=== PATIENT | female | born 1990 | race Caucasian/White ===

== ENCOUNTER 2016-07-27 21:43 | Outpatient (CLI) | payer OTHER ==
[2016-07-27 23:04] LABS: ASPARTATE AMINO TRANSFERASE 19 U/L (15-37); BLOOD UREA NITROGEN 10 mg/dL (7-18)
== END 2016-07-27 23:43 | disposition home or self-care (01) ==
LOC: LDOP 21:43
PROVIDERS: ATTEND Obstetrics & Gynecology
DX: O26.893 Other specified pregnancy related conditions, third trimester (principal); O24.419 Gestational diabetes mellitus in pregnancy, unspecified control; O21.9 Vomiting of pregnancy, unspecified; O62.9 Abnormality of forces of labor, unspecified; R50.9 Fever, unspecified; Z3A.33 33 weeks gestation of pregnancy
CPT/HCPCS: 36415; 59025; 80053; 81001; 82731; 82962; 85025; 87086; 99211; G0463

== ENCOUNTER 2016-09-12 05:35 | Inpatient (IN) | payer OTHER ==
[~2016-09-12] VITALS: Ht 175.3 cm; Wt 104.5 kg
[2016-09-12] MEDS ORDERED: NEWBORN KIT ONE (05:41)
[2016-09-12] MEDS ORDERED: LACTATED RINGERS 1,000 ML IV SCH ×2 (05:45→06:00)
[2016-09-12] MEDS ORDERED: OXYTOCIN 30U/ 0.9% NaCL 500ML 500 ML IV SCH (05:45)
[2016-09-12 06:00] VITALS: BP 124/79
[2016-09-12] MEDS ORDERED: LACTATED RINGERS 1,000 ML IVBOLUS ONE (06:00)
[2016-09-12] MEDS ORDERED: ONDANSETRON 2MG/ML, 2ML IVPush ONE (06:00)
[2016-09-12] MEDS ORDERED: SODIUM CITRATE/CITRIC ACID 30 ML UDC PO ONE (06:00)
[2016-09-12] MEDS ORDERED: CALCIUM CARBONATE 500 MG TAB.CHEW PO PRN (06:00)
[2016-09-12] MEDS ORDERED: METOCLOPRAMIDE 5 MG/ML, 2ML IV ONE (06:00)
[2016-09-12] MEDS ORDERED: SODIUM CITRATE/CITRIC ACID 30 ML UDC ONE (06:19)
[2016-09-12] MEDS ORDERED: METOCLOPRAMIDE 5 MG/ML, 2ML ONE (06:19)
[2016-09-12 06:22] LABS: HEMOGLOBIN 10.8 g/dL (11.7-16.4); WHITE BLOOD COUNT 6.5 x10^3/uL (3.4-10)
[2016-09-12] MEDS ORDERED: OXYTOCIN 30U/ 0.9% NaCL 500ML 500 ML ONE (07:20)
[2016-09-12] MEDS ORDERED: HYDROmorphone 2 MG/ML, 1ML ONE (07:28)
[2016-09-12] MEDS ORDERED: FENTANYL PF 100 MCG/2ML ONE (07:28)
[2016-09-12] MEDS: LACTATED RINGERS 1,000 ML IV SCH ×4 (09:03→19:03)
[2016-09-12] MEDS: OXYTOCIN 30U/ 0.9% NaCL 500ML 500 ML IV SCH ×2 (09:03→19:03)
[2016-09-12] MEDS ORDERED: OXYcodone/APAP 5/325MG TABLET PO PRN (09:30)
[2016-09-12] MEDS ORDERED: ONDANSETRON 2MG/ML, 2ML IV PRN (09:30)
[2016-09-12] MEDS ORDERED: MISOPROSTOL 200 MCG TABLET PR PRN (09:30)
[2016-09-12] MEDS: PRENATAL VIT/IRON/FA 1 EACH TABLET PO SCH (09:30)
[2016-09-12] MEDS ORDERED: morphine SULFATE 10 MG/ML, 1ML IVPush PRN ×2 (09:30)
[2016-09-12] MEDS ORDERED: MEPERIDINE/PF 50 MG/ML IVPush PRN (09:30)
[2016-09-12] MEDS ORDERED: OXYcodone/APAP 5/325MG TABLET ONE (09:47)
[2016-09-12] MEDS: OXYcodone/APAP 5/325MG TABLET PO PRN ×4 (09:49→22:26)
[2016-09-12 11:00] VITALS: BP 126/79
[2016-09-12] MEDS: KETOROLAC 30 MG/1 ML IV SCH ×3 (11:32→23:24)
[2016-09-12 16:12] LABS: HEMATOCRIT 32.2 % (34.6-47.8); HEMOGLOBIN 10.6 g/dL (11.7-16.4); WHITE BLOOD COUNT 8.3 x10^3/uL (3.4-10)
[2016-09-12 16:30] VITALS: BP 124/82
[2016-09-12 19:45] VITALS: BP 116/77
[2016-09-13] VITALS: BP 118/80
[2016-09-13] MEDS: LACTATED RINGERS 1,000 ML IV SCH ×5 (01:03→17:03)
[2016-09-13 02:23] VITALS: BP 134/78
[2016-09-13 03:50] VITALS: BP 112/74
[2016-09-13] MEDS: OXYTOCIN 30U/ 0.9% NaCL 500ML 500 ML IV SCH ×2 (05:03→15:03)
[2016-09-13] MEDS: KETOROLAC 30 MG/1 ML IV SCH ×4 (05:13→23:45)
[2016-09-13] MEDS: PRENATAL VIT/IRON/FA 1 EACH TABLET PO SCH (07:23)
[2016-09-13] MEDS: DOCUSATE 100 MG CAPSULE PO PRN ×2 (07:23→20:42)
[2016-09-13] MEDS: OXYcodone/APAP 5/325MG TABLET PO PRN (07:23)
[2016-09-13] MEDS: SIMETHICONE 80 MG CHEW TAB PO PRN ×3 (07:26→20:42)
[2016-09-13 07:30] VITALS: BP 129/86
[2016-09-13] MEDS: OXYcodone/APAP 10/325MG TABLET PO PRN ×3 (11:13→20:42)
[2016-09-13] MEDS ORDERED: ONDANSETRON ODT 4 MG PO PRN (18:30)
[2016-09-13 21:07] VITALS: BP 119/76
[2016-09-14] MEDS: OXYcodone/APAP 10/325MG TABLET PO PRN ×6 (00:38→21:59)
[2016-09-14] MEDS: LACTATED RINGERS 1,000 ML IV SCH ×6 (01:03→21:03)
[2016-09-14] MEDS: OXYTOCIN 30U/ 0.9% NaCL 500ML 500 ML IV SCH ×3 (01:03→21:03)
[2016-09-14] MEDS: KETOROLAC 30 MG/1 ML IV SCH (05:40)
[2016-09-14 08:30] VITALS: BP 119/79
[2016-09-14] MEDS: SIMETHICONE 80 MG CHEW TAB PO PRN ×3 (08:46→18:04)
[2016-09-14] MEDS: DOCUSATE 100 MG CAPSULE PO PRN ×2 (08:46→20:00)
[2016-09-14] MEDS: PRENATAL VIT/IRON/FA 1 EACH TABLET PO SCH (08:47)
[2016-09-14] MEDS: IBUPROFEN 600 MG TABLET PO PRN ×2 (12:49→19:59)
[2016-09-14 21:00] VITALS: BP 127/85
[2016-09-15] MEDS: LACTATED RINGERS 1,000 ML IV SCH ×3 (01:03→09:03)
[2016-09-15] MEDS: IBUPROFEN 600 MG TABLET PO PRN ×2 (01:50→12:16)
[2016-09-15] MEDS: OXYcodone/APAP 10/325MG TABLET PO PRN ×3 (01:50→12:16)
[2016-09-15] MEDS ORDERED: IBUP-1222 PO (05:41)
[2016-09-15] MEDS ORDERED: OXYC-302 PO (05:42)
[2016-09-15] MEDS ORDERED: DOCU-30 PO (05:43)
[2016-09-15] MEDS: OXYTOCIN 30U/ 0.9% NaCL 500ML 500 ML IV SCH (07:03)
[2016-09-15] MEDS: PRENATAL VIT/IRON/FA 1 EACH TABLET PO SCH (07:46)
[2016-09-15] MEDS: DOCUSATE 100 MG CAPSULE PO PRN (07:46)
[2016-09-15 08:00] VITALS: BP 126/85
== END 2016-09-15 13:00 | disposition home or self-care (01) | DRG 766 ==
LOC: LDIP 05:35 → 2NW 11:10
PROVIDERS: ADMIT Obstetrics & Gynecology; ATTEND Obstetrics & Gynecology
PROC: 10D00Z1 Extraction of Products of Conception, Low, Open Approach (ICD-10-PCS; principal; 2016-09-12)
DX: O24.424 Gestational diabetes mellitus in childbirth, insulin controlled (principal); O36.63X0 Maternal care for excessive fetal growth, third trimester, not applicable or unspecified; Z3A.39 39 weeks gestation of pregnancy; Z37.0 Single live birth; Z85.72 Personal history of non-Hodgkin lymphomas
CPT/HCPCS: 36415; 82803; 82962; 85025; 86850; 86900; J1170; J1885; J2405; J3010; J2590; J2765; J7120

== ENCOUNTER → 2017-05-25 | Outpatient (CLI) | payer OTHER ==
[~2017-05-25] MED LIST: DOCU-131 PO; IBUP-1222 PO; OXYC-302 PO
== END ==
LOC: ROC 09:43
PROVIDERS: ATTEND Radiology Radiation Oncology
DX: Z08 Encounter for follow-up examination after completed treatment for malignant neoplasm (principal); C85.81 Other specified types of non-Hodgkin lymphoma, lymph nodes of head, face, and neck
CPT/HCPCS: 99213; G0463

== ENCOUNTER 2018-05-14 05:20 | Inpatient (IN) | payer OTHER ==
[~2018-05-14] VITALS: Ht 175.3 cm; Wt 103.2 kg
[2018-05-14] MEDS ORDERED: SODIUM CITRATE/CITRIC ACID 15 ML UDC PO ONE (06:00)
[2018-05-14] MEDS ORDERED: LACTATED RINGERS 1,000 ML IVBOLUS ONE (06:00)
[2018-05-14] MEDS ORDERED: METOCLOPRAMIDE 5 MG/ML, 2ML IV ONE (06:00)
[2018-05-14] MEDS ORDERED: SODIUM CITRATE/CITRIC ACID 15 ML UDC ONE (06:11)
[2018-05-14] MEDS ORDERED: METOCLOPRAMIDE 5 MG/ML, 2ML ONE (06:11)
[2018-05-14] MEDS ORDERED: NEWBORN KIT ONE (06:11)
[2018-05-14] MEDS ORDERED: OXYTOCIN 30U/ 0.9% NaCL 500ML 500 ML ONE (06:11)
[2018-05-14 06:32] LABS: BASOPHILS # (AUTO) 0.01 x10^3/uL (0-0.1); BASOPHILS % (AUTO) 0 % (0-1); EOSINOPHILS # (AUTO) 0.18 x10^3/uL (0-0.4); EOSINOPHILS % (AUTO) 3 % (1-7); LYMPHOCYTES # (AUTO) 0.75 x10^3/uL (1-3.4); LYMPHOCYTES % (AUTO) 12 % (22-44); MD NO; MEAN CORPUSCULAR HEMOGLOBIN 24.4 pg (27.0-34.8); MEAN CORPUSCULAR HGB CONC 32.4 g/dL (32.4-35.8); MEAN CORPUSCULAR VOLUME 75.1 fL (80-100); MEAN PLATELET VOLUME 8.8 fL (7.4-10.4); MONOCYTES # (AUTO) 0.47 x10^3/uL (0.2-0.8); MONOCYTES % (AUTO) 7 % (2-9); NEUTROPHILS # (AUTO) 4.93 x10^3/uL (1.8-6.8); NEUTROPHILS % (AUTO) 78 % (42-75); PLATELET COUNT 230 x10^3/uL (130-400); RED CELL DISTRIBUTION WIDTH 16.5 % (9.6-15.2)
[2018-05-14 06:58] VITALS: BP 130/85
[2018-05-14] MEDS ORDERED: FENTANYL PF 100 MCG/2ML ONE (07:21)
[2018-05-14] MEDS ORDERED: EPHEDRINE 50 MG/ML, 1ML ONE (07:21)
[2018-05-14] MEDS ORDERED: KETOROLAC 30 MG/1 ML ONE (07:21)
[2018-05-14] MEDS ORDERED: CEFAZOLIN 1,000 MG ONE (07:21)
[2018-05-14] MEDS ORDERED: PHENYLEPHRINE 10 MG/ML ONE (07:21)
[2018-05-14] MEDS ORDERED: DEXAMETHASONE 4 MG/ML, 1ML ONE (07:21)
[2018-05-14] MEDS ORDERED: ONDANSETRON 2MG/ML, 2ML ONE (07:21)
[2018-05-14] MEDS ORDERED: OXYTOCIN 10 UNITS/ML, 1ML ONE (07:21)
[2018-05-14] MEDS ORDERED: OXYcodone 5 MG/5 ML ORAL.SOL UDC PO PRN (07:30)
[2018-05-14] MEDS ORDERED: ONDANSETRON 2MG/ML, 2ML IVPush PRN (07:30)
[2018-05-14] MEDS ORDERED: LABETALOL 5MG/ML, 20ML IV PRN (07:30)
[2018-05-14] MEDS ORDERED: hydrALAzine 20 MG/ML, 1ML IV PRN (07:30)
[2018-05-14] MEDS ORDERED: FENTANYL PF 100 MCG/2ML IV PRN (07:30)
[2018-05-14] MEDS ORDERED: MEPERIDINE/PF 25MG/0.5ML IVPush PRN (07:30)
[2018-05-14] MEDS ORDERED: PROMETHAZINE 25 MG/ML, 1ML IV PRN (07:30)
[2018-05-14] MEDS ORDERED: MIDAZOLAM 1 MG/ML, 2ML IV PRN (07:30)
[2018-05-14] MEDS ORDERED: EPHEDRINE 50 MG/ML, 1ML IVPush PRN (07:30)
[2018-05-14] MEDS ORDERED: HYDROmorphone 2 MG/ML, 1ML IVPush PRN (07:30)
[2018-05-14] MEDS ORDERED: ALBUTEROL SULFATE 2.5 MG/3 ML NPPB PRN (07:30)
[2018-05-14] MEDS ORDERED: HYDROcodone/APAP 7.5-325MG/15ML UDC PO PRN (07:30)
[2018-05-14] MEDS ORDERED: HYDROmorphone 2 MG/ML, 1ML ONE (08:08)
[2018-05-14] MEDS: LACTATED RINGERS 1,000 ML IV SCH ×4 (08:47→18:47)
[2018-05-14] MEDS ORDERED: MORPHINE SULFATE 4 MG/ML, 1ML IVPush PRN (09:00)
[2018-05-14] MEDS ORDERED: OXYcodone/APAP 5/325MG TABLET PO PRN (09:00)
[2018-05-14] MEDS ORDERED: METHYLERGONOVINE 0.2 MG/ML IM PRN (09:00)
[2018-05-14] MEDS: PRENATAL VIT/IRON/FA 1 EACH TABLET PO SCH (09:00)
[2018-05-14] MEDS ORDERED: ONDANSETRON 2MG/ML, 2ML IV PRN (09:00)
[2018-05-14] MEDS ORDERED: morphine SULFATE 10 MG/ML, 1ML IM PRN (09:00)
[2018-05-14] MEDS: KETOROLAC 30 MG/1 ML IV SCH ×3 (09:00→20:55)
[2018-05-14] MEDS ORDERED: MISOPROSTOL 200 MCG TABLET PR PRN (09:00)
[2018-05-14] MEDS: OXYTOCIN 30U/ 0.9% NaCL 500ML 500 ML IV SCH ×2 (10:25→18:47)
[2018-05-14] MEDS: OXYcodone IR 5MG TABLET PO PRN ×3 (11:16→20:55)
[2018-05-14 11:30] VITALS: BP 113/68
[2018-05-14 16:00] VITALS: BP 112/67
[2018-05-14 16:06] LABS: BASOPHILS # (AUTO) 0.02 x10^3/uL (0-0.1); BASOPHILS % (AUTO) 0 % (0-1); EOSINOPHILS # (AUTO) 0.01 x10^3/uL (0-0.4); EOSINOPHILS % (AUTO) 0 % (1-7); LYMPHOCYTES # (AUTO) 0.75 x10^3/uL (1-3.4); LYMPHOCYTES % (AUTO) 7 % (22-44); MD NO; MEAN CORPUSCULAR HEMOGLOBIN 23.9 pg (27.0-34.8); MEAN CORPUSCULAR HGB CONC 31.6 g/dL (32.4-35.8); MEAN CORPUSCULAR VOLUME 75.4 fL (80-100); MEAN PLATELET VOLUME 8.4 fL (7.4-10.4); MONOCYTES % (AUTO) 3 % (2-9); NEUTROPHILS # (AUTO) 9.49 x10^3/uL (1.8-6.8); NEUTROPHILS % (AUTO) 90 % (42-75); PLATELET COUNT 239 x10^3/uL (130-400); RED BLOOD COUNT 4.14 x10^6/uL (3.82-5.3); RED CELL DISTRIBUTION WIDTH 16.4 % (9.6-15.2)
[2018-05-14 20:00] VITALS: BP 114/76
[2018-05-14] MEDS: SIMETHICONE 80 MG CHEW TAB PO PRN (20:55)
[2018-05-15 00:18] VITALS: BP 116/68
[2018-05-15] MEDS: LACTATED RINGERS 1,000 ML IV SCH ×5 (00:47→16:47)
[2018-05-15] MEDS: KETOROLAC 30 MG/1 ML IV SCH ×2 (03:03→08:56)
[2018-05-15] MEDS: OXYcodone IR 5MG TABLET PO PRN ×4 (03:03→20:20)
[2018-05-15] MEDS: OXYTOCIN 30U/ 0.9% NaCL 500ML 500 ML IV SCH ×2 (04:47→14:47)
[2018-05-15 04:55] VITALS: BP 100/64
[2018-05-15 06:35] LABS: BASOPHILS # (AUTO) 0.04 x10^3/uL (0-0.1); BASOPHILS % (AUTO) 1 % (0-1); EOSINOPHILS # (AUTO) 0.18 x10^3/uL (0-0.4); EOSINOPHILS % (AUTO) 2 % (1-7); LYMPHOCYTES # (AUTO) 1.18 x10^3/uL (1-3.4); LYMPHOCYTES % (AUTO) 16 % (22-44); MD NO; MEAN CORPUSCULAR HEMOGLOBIN 24.9 pg (27.0-34.8); MEAN CORPUSCULAR HGB CONC 33.5 g/dL (32.4-35.8); MEAN CORPUSCULAR VOLUME 74.4 fL (80-100); MEAN PLATELET VOLUME 8.1 fL (7.4-10.4); MONOCYTES # (AUTO) 0.51 x10^3/uL (0.2-0.8); MONOCYTES % (AUTO) 7 % (2-9); NEUTROPHILS # (AUTO) 5.33 x10^3/uL (1.8-6.8); NEUTROPHILS % (AUTO) 74 % (42-75); PLATELET COUNT 212 x10^3/uL (130-400); RED BLOOD COUNT 3.65 x10^6/uL (3.82-5.3); RED CELL DISTRIBUTION WIDTH 16.2 % (9.6-15.2)
[2018-05-15] MEDS: DOCUSATE 100 MG CAPSULE PO PRN ×2 (07:52→20:20)
[2018-05-15] MEDS: PRENATAL VIT/IRON/FA 1 EACH TABLET PO SCH (07:52)
[2018-05-15 08:00] VITALS: BP 122/80
[2018-05-15] MEDS: SIMETHICONE 80 MG CHEW TAB PO PRN ×3 (09:01→20:21)
[2018-05-15] MEDS: IBUPROFEN 600 MG TABLET PO PRN ×2 (14:46→20:21)
[2018-05-15 20:20] VITALS: BP 115/76
[2018-05-16] MEDS: OXYTOCIN 30U/ 0.9% NaCL 500ML 500 ML IV SCH ×2 (00:47→10:47)
[2018-05-16] MEDS: LACTATED RINGERS 1,000 ML IV SCH ×4 (00:47→10:47)
[2018-05-16] MEDS: OXYcodone IR 5MG TABLET PO PRN ×3 (01:14→12:05)
[2018-05-16] MEDS: IBUPROFEN 600 MG TABLET PO PRN ×2 (02:44→08:35)
[2018-05-16] MEDS: SIMETHICONE 80 MG CHEW TAB PO PRN ×2 (02:44→08:33)
[2018-05-16 07:40] VITALS: BP 114/75
[2018-05-16] MEDS: PRENATAL VIT/IRON/FA 1 EACH TABLET PO SCH (08:33)
[2018-05-16] MEDS: DOCUSATE 100 MG CAPSULE PO PRN (08:33)
== END 2018-05-16 16:05 | disposition home or self-care (01) | DRG 788 ==
LOC: LDIP 05:20 → UNDOADMIN 05:37 → EDIP 05:37 → 2NW 10:52
PROVIDERS: ADMIT Obstetrics & Gynecology; ATTEND Obstetrics & Gynecology
PROC: 10D00Z1 Extraction of Products of Conception, Low, Open Approach (ICD-10-PCS; principal; 2018-05-14)
DX: O24.424 Gestational diabetes mellitus in childbirth, insulin controlled (principal); O34.211 Maternal care for low transverse scar from previous cesarean delivery; Z37.0 Single live birth; Z3A.39 39 weeks gestation of pregnancy; Z85.72 Personal history of non-Hodgkin lymphomas; O35.8XX0 Maternal care for other (suspected) fetal abnormality and damage, not applicable or unspecified
CPT/HCPCS: 36415; 82947; 82962; 85025; 86850; 86900; G0378; J0690; J1100; J1170; J1885; J2405; J3010; J2370; J2590; J2765; J7120

== ENCOUNTER 2018-09-05 09:58 | Outpatient (CLI) | payer OTHER ==
[2018-09-05] MEDS ORDERED: OMNIPAQUE 350 MG/ML, 100ML BOTTLE ONE (14:22)
== END 2018-09-05 23:59 | disposition home or self-care (01) ==
LOC: CFH 09:58
PROVIDERS: ATTEND Pathology Hematology
DX: C85.11 Unspecified B-cell lymphoma, lymph nodes of head, face, and neck (principal); R59.0 Localized enlarged lymph nodes
CPT/HCPCS: 71260; 74177; Q9967

== ENCOUNTER → 2020-02-14 | Outpatient (CLI) | payer OTHER ==
[~2020-02-14] MED LIST changes: +OMNIPAQUE 350 MG/ML, 100ML BOTTLE ONE
== END | disposition home or self-care (01) ==
LOC: CFH 09:14
PROVIDERS: ATTEND Pathology Hematology
DX: C85.11 Unspecified B-cell lymphoma, lymph nodes of head, face, and neck (principal); R16.1 Splenomegaly, not elsewhere classified; N85.4 Malposition of uterus; R59.9 Enlarged lymph nodes, unspecified
CPT/HCPCS: 71260; 74177; Q9967